=== PATIENT | male | born 1940 | race Caucasian/White ===

== ENCOUNTER 2021-06-11 08:56 | Observation (INO) | payer OTHER ==
[2021-06-07 16:09] LABS: BASOPHILS % (AUTO) 0.6 % (0.0-5.0); EOSINOPHILS % (AUTO) 4.9 % (0.0-8.0); HEMATOCRIT 41.7 % (42-54); LYMPHOCYTES % (AUTO) 21.5 % (21.0-51.0); MEAN CORPUSCULAR HEMOGLOBIN 30.4 pg (27.0-33.0); MEAN CORPUSCULAR HGB CONC 32.6 g/dL (32.0-36.0); MEAN CORPUSCULAR VOLUME 93.1 fL (79-99); MONOCYTES % (AUTO) 10.7 % (3.0-13.0); PLATELET COUNT (AUTO) 161 K/uL (130-400); RED BLOOD CELL COUNT(AUTO) 4.48 MIL/uL (4.50-6.20); RED CELL DISTRIBUTION WIDTH 12.8 % (11.0-15.5)
[2021-06-07 16:12] LABS: APPEARANCE,URINE CLEAR (CLEAR); BILIRUBIN,URINE NEGATIVE (NEGATIVE); COLOR,URINE STRAW (YELLOW); GLUCOSE, URINE (UA) NEGATIVE (NEGATIVE); KETONES,URINE NEGATIVE (NEGATIVE); LEUKOCYTE ESTERASE ,URINE NEGATIVE (NEGATIVE); NITRATE,URINE NEGATIVE (NEGATIVE); OCCULT BLOOD,URINE TRACE-INTACT (NEGATIVE); PROTEIN,URINE NEGATIVE (NEGATIVE); UROBILINOGEN,URINE 0.2 mg/dL (0.2-1.0)
[2021-06-07 16:19] LABS: BACTERIA,URINE Rare /HPF (None Seen); RBC,URINE 0-1 /HPF (0-1); WBC,URINE 0-1 /HPF (0-1)
[2021-06-07 16:20] LABS: SQUAMOUS EPITHELIAL CELL,UR None Seen /HPF (0-2)
[2021-06-07 16:29] LABS: CREATININE 1.7 mg/dL (0.5-1.5); POTASSIUM 3.7 mmol/L (3.5-5.1)
[2021-06-07 16:31] LABS: INR 1.05 (0.85-1.15); PROTHROMBIN TIME 11.4 SEC (9.6-11.6)
[2021-06-07 16:33] LABS: PARTIAL THROMBOPLASTIN TIME 32.3 SEC (26.3-35.5)
[2021-06-11] VITALS (16 sets, daily range): BP systolic 113–148; BP diastolic 47–81
[~2021-06-11] VITALS: Ht 180.3 cm; Wt 108.6 kg
[~2021-06-11 08:56] MED LIST: 0.9%NACL 1000ML 1,000 ML IV SCH; AMLO-257 PO; ASPI-556 PO; BUME1TAB6 PO; CHOL2000 PO; CLOP75TA14 PO; FEBU40TA3 PO; ICOS1CAP2 PO; ISOS30TA92 PO; LINA5TAB PO; LOSA25TA41 PO; METO-391 PO; NITR0.4T50 SL; PANT40TA54 PO; PIOG15TA66 PO; ROSU10TA28 PO; TAMS-1 PO
[2021-06-11] MEDS ORDERED: LISI5TAB21 PO (11:19)
[2021-06-11] MEDS ORDERED: LIDOCAINE HCL 400MG/20ML VIAL ONE (11:53)
[2021-06-11] MEDS ORDERED: HEPARIN 10,000 UNIT/10ML (1,000 UNIT/ML) VIAL ONE (11:53)
[2021-06-11] MEDS ORDERED: IOHEXOL 350 MG/ML 100ML INFUS..BTL IV ONE (11:54)
[2021-06-11] MEDS ORDERED: IOHEXOL-350 75 ML VIAL IV ONE (11:55)
[2021-06-11] MEDS ORDERED: NITROGLYCERIN 50MG/D5W 250ML 1 BOT IV PRN (13:30)
[2021-06-11] MEDS ORDERED: TEMAZEPAM 30 MG CAP PO PRN (13:30)
[2021-06-11] MEDS ORDERED: ACETAMINOPHEN WITH CODEINE 1 TAB TAB PO PRN ×2 (13:30)
[2021-06-11] MEDS ORDERED: ONDANSETRON 4MG INJ IVP PRN ×2 (13:30)
[2021-06-11] MEDS ORDERED: MORPHINE 4 MG SYG IVP PRN (14:00)
[2021-06-12 03:50] VITALS: BP 128/55
[2021-06-12 04:52] LABS: CREATININE 1.7 mg/dL (0.5-1.5); POTASSIUM 3.7 mmol/L (3.5-5.1)
[2021-06-12 07:00] VITALS: BP 126/66
[2021-06-12] MEDS ORDERED: CLOPIDOGREL 75MG TAB PO SCH (09:00)
[2021-06-12] MEDS ORDERED: PANTOPRAZOLE 40 MG TAB DR PO SCH (09:00)
[2021-06-12] MEDS ORDERED: ASPIRIN 81MG CHEW TAB PO SCH (09:00)
[2021-06-12 11:00] VITALS: BP 135/66
== END 2021-06-12 13:25 | disposition home or self-care (01) ==
LOC: DAH 08:56 → DAHIP 08:57 → 2AH 15:47
PROVIDERS: ADMIT Internal Medicine Cardiovascular Disease; ATTEND Internal Medicine Cardiovascular Disease
DX: I25.810 Atherosclerosis of coronary artery bypass graft(s) without angina pectoris (principal); I25.82 Chronic total occlusion of coronary artery; E11.22 Type 2 diabetes mellitus with diabetic chronic kidney disease; I12.9 Hypertensive chronic kidney disease with stage 1 through stage 4 chronic kidney disease, or unspecified chronic kidney disease; N18.30 Chronic kidney disease, stage 3 unspecified; E78.5 Hyperlipidemia, unspecified; K21.9 Gastro-esophageal reflux disease without esophagitis; Z79.899 Other long term (current) drug therapy
CPT/HCPCS: 36415 ×3; 71045; 80048 ×2; 80061; 81001; 82948 ×5; 85025; 85347; 85610; 85730 ×3; 92920; 93005 ×3; 93459; A4215; A4216; A4221; A4222; A4223 ×3; A4606; A4663; C1725; C1769; C1887; C1894 ×2; G0378 ×24; J1644 ×2; J3490; Q9965; Q9967 ×2

== ENCOUNTER → 2021-11-16 | Outpatient (CLI) | payer OTHER ==
[~2021-11-16] MED LIST changes: -0.9%NACL 1000ML 1,000 ML IV SCH; +LISI5TAB21 PO
== END | disposition home or self-care (01) ==
LOC: LAB 08:52
PROVIDERS: ATTEND Internal Medicine Cardiovascular Disease
DX: I10 Essential (primary) hypertension (principal); E78.5 Hyperlipidemia, unspecified; E11.9 Type 2 diabetes mellitus without complications; I25.10 Atherosclerotic heart disease of native coronary artery without angina pectoris; Z79.899 Other long term (current) drug therapy
CPT/HCPCS: 36415; 82652; 84443

== ENCOUNTER → 2022-04-26 | Outpatient (CLI) | payer OTHER ==
[~2022-04-26] MED LIST changes: +CLOP-31 PO; -CLOP75TA14 PO
== END | disposition home or self-care (01) ==
LOC: LAB 11:51
PROVIDERS: ATTEND Internal Medicine Cardiovascular Disease
DX: I10 Essential (primary) hypertension (principal); E11.9 Type 2 diabetes mellitus without complications
CPT/HCPCS: 36415; 83880

== ENCOUNTER 2022-08-07 06:03 | Day surgery (SDC) | payer OTHER ==
[2022-08-05 11:11] LABS: BASOPHILS % (AUTO) 0.6 % (0.0-5.0); EOSINOPHILS % (AUTO) 3.8 % (0.0-8.0); HEMATOCRIT 41.7 % (42-54); LYMPHOCYTES % (AUTO) 25.1 % (21.0-51.0); MEAN CORPUSCULAR HEMOGLOBIN 31.5 pg (27.0-33.0); MEAN CORPUSCULAR HGB CONC 33.8 g/dL (32.0-36.0); MEAN CORPUSCULAR VOLUME 93.1 fL (79-99); MONOCYTES % (AUTO) 9.6 % (3.0-13.0); NEUTROPHILS % (AUTO) 60.6 % (40.0-77.0); PLATELET COUNT (AUTO) 123 K/uL (130-400); RED BLOOD CELL COUNT(AUTO) 4.48 MIL/uL (4.50-6.20); RED CELL DISTRIBUTION WIDTH 13.4 % (11.0-15.5); WHITE BLOOD COUNT (AUTO) 6.3 K/uL (4.8-10.8)
[2022-08-05 11:17] LABS: CREATININE 2.1 mg/dL (0.5-1.5); POTASSIUM 4.9 mmol/L (3.5-5.1)
[2022-08-05 11:36] LABS: INR 1.01 (0.85-1.15)
[2022-08-05 11:38] LABS: PARTIAL THROMBOPLASTIN TIME 30.9 SEC (26.3-35.5)
[2022-08-05 11:45] VITALS: BP 140/86
[~2022-08-07] VITALS: Ht 180.3 cm; Wt 110.8 kg
[2022-08-07] VITALS (10 sets, daily range): BP systolic 94–143; BP diastolic 47–68
[~2022-08-07 06:03] MED LIST changes: -AMLO-257 PO; -ASPI-556 PO; -BUME1TAB6 PO; +BUME2TAB5 PO; +FAMO20TA8 PO; -ICOS1CAP2 PO; -ISOS30TA92 PO; -LISI5TAB21 PO; -LOSA25TA41 PO; -NITR0.4T50 SL; +PANT20TA18 PO; -PANT40TA54 PO; -PIOG15TA66 PO; +SACU1TAB PO
[2022-08-07] MEDS ORDERED: 0.9%NACL 1000ML 1,000 ML IV ONE (06:21)
[2022-08-07] MEDS ORDERED: MEPERIDINE-PF 25 MG/ML SYG ONE ×2 (07:14→08:04)
[2022-08-07] MEDS ORDERED: CEFAZOLIN SODIUM 1 GM VIAL ONE (07:14)
[2022-08-07] MEDS ORDERED: BUPIVACAINE/PF 0.25% 10ML VIAL IJ ONE (07:14)
[2022-08-07] MEDS ORDERED: LIDOCAINE HCL 1% MDV 50ML VIAL ONE (07:14)
[2022-08-07] MEDS ORDERED: MIDAZOLAM HCL 1 MG/ML 2ML VIAL ONE ×2 (07:14→08:04)
[2022-08-07] MEDS ORDERED: ACETAMINOPHEN 500 MG TABLET PO PRN (09:00)
[2022-08-07] MEDS ORDERED: ACETAMINOPHEN WITH CODEINE 1 TAB TAB PO PRN (09:00)
[2022-08-07] MEDS ORDERED: TRAM50TA4 PO ×2 (09:08→17:08)
== END 2022-08-07 12:15 | disposition home or self-care (01) ==
LOC: DAH 06:03
PROVIDERS: ATTEND Internal Medicine Cardiovascular Disease
DX: I25.5 Ischemic cardiomyopathy (principal); E11.21 Type 2 diabetes mellitus with diabetic nephropathy; E11.22 Type 2 diabetes mellitus with diabetic chronic kidney disease; I13.0 Hypertensive heart and chronic kidney disease with heart failure and stage 1 through stage 4 chronic kidney disease, or unspecified chronic kidney disease; N18.9 Chronic kidney disease, unspecified; I50.42 Chronic combined systolic (congestive) and diastolic (congestive) heart failure; I25.2 Old myocardial infarction; I49.3 Ventricular premature depolarization; E78.5 Hyperlipidemia, unspecified; K21.9 Gastro-esophageal reflux disease without esophagitis; Z79.01 Long term (current) use of anticoagulants; Z79.899 Other long term (current) drug therapy; Z98.890 Other specified postprocedural states; Z95.5 Presence of coronary angioplasty implant and graft; Z79.82 Long term (current) use of aspirin
CPT/HCPCS: 80048; 85025; 85610; 85730; 36415; 93005; 33249; 82948 ×2; 71045; C1721; C1896; C1895; J0690; J7030; J2250 ×2; J3490 ×2; J2175 ×2; A4215; A4222; A4221; A4663; A4216; A4606; A4223 ×3; 99156; 99157